=== PATIENT | female | born 1995 | race Caucasian/White ===

== ENCOUNTER 2016-08-18 19:01 | Emergency (ER) | payer OTHER | END 2016-08-18 20:13 | disposition left against medical advice (07) | LOC: ER1 19:01 | DX: Z53.21 Procedure and treatment not carried out due to patient leaving prior to being seen by health care provider (principal) ==

== ENCOUNTER 2016-09-29 19:25 | Emergency (ER) | payer OTHER ==
[2016-09-29 21:22] LABS: HEMOGLOBIN 13.8 gm/dl (12.3-15.3); RED BLOOD COUNT 4.9 M/UL (4.00-5.10)
[2016-09-29 21:43] LABS: BUN/CREATININE RATIO 22 (0-10)
== END 2016-09-30 00:30 | disposition home or self-care (01) ==
LOC: ER1 19:25
PROVIDERS: Physician Assistant
DX: O23.591 Infection of other part of genital tract in pregnancy, first trimester (principal); B96.89 Other specified bacterial agents as the cause of diseases classified elsewhere; Z3A.09 9 weeks gestation of pregnancy; Z88.0 Allergy status to penicillin
CPT/HCPCS: 36415; 76817; 80053; 81001; 84702; 85025; 86900; 86901; 87086; 87210; 99284; J7030

== ENCOUNTER 2016-11-22 16:01 | Emergency (ER) | payer OTHER ==
[2016-11-22 16:39] LABS: HEMOGLOBIN 14.3 gm/dl (12.3-15.3); RED BLOOD COUNT 4.97 M/UL (4.00-5.10); WHITE BLOOD COUNT 16.9 K/UL (4.5-11.0)
[2016-11-22 16:56] LABS: BUN/CREATININE RATIO 16 (0-10)
== END 2016-11-22 18:25 | disposition home or self-care (01) ==
LOC: ER1 16:01
PROVIDERS: Emergency Medicine
DX: O26.892 Other specified pregnancy related conditions, second trimester (principal); R10.2 Pelvic and perineal pain; Z3A.18 18 weeks gestation of pregnancy
CPT/HCPCS: 36415; 76805; 80053; 81001; 85025; 87210; 96360; 96361; 99284

== ENCOUNTER → 2017-02-12 | Outpatient (CLI) | payer OTHER | LOC: GENOP 15:07 | DX: O99.89 Other specified diseases and conditions complicating pregnancy, childbirth and the puerperium (principal); R10.9 Unspecified abdominal pain; Z3A.29 29 weeks gestation of pregnancy | CPT/HCPCS: 81001; G0463 ==

== ENCOUNTER 2021-01-10 17:49 | Emergency (ER) | payer OTHER ==
[~2021-01-10 17:49] MED LIST: COLACE 100MG C100 MG PO; MEDROL DOSEPAK 24 MG PO; PROVENTIL HFA6.7 GM INH; ZOFRAN4 MG PO
== END 2021-01-10 18:03 | disposition left against medical advice (07) ==
LOC: ER1 17:49
DX: Z53.21 Procedure and treatment not carried out due to patient leaving prior to being seen by health care provider (principal)

== ENCOUNTER → 2021-03-11 | Outpatient (CLI) | payer OTHER | LOC: US 10:30 | DX: R10.11 Right upper quadrant pain (principal) | CPT/HCPCS: 76705 ==